=== PATIENT | female | born 1950 | race Caucasian/White ===

== ENCOUNTER → 2016-12-29 | Outpatient (REF) | payer MEDICARE, OTHER ==
[~2016-12-29] MED LIST: BRIM0.2S OU; COPA20IN SC; DITR1TAB PO
[2016-12-29 12:47] LABS: BASO % 0.5 % (0.0-1.0); EOS # 0.2 K/mm3 (0.0-0.50); EOS % 2.7 % (0.0-3.0); LARGE UNSTAINED CELL # 0.2 K/mm3 (0.0-0.4); LARGE UNSTAINED CELL % 2.4 % (0.0-4.0); LYMPH # 2.2 K/mm3 (1.5-4.5); LYMPH % 29.7 % (24.0-44.0); MEAN CORPUSCULAR HEMOGLOBIN 31.8 pg (27.0-33.0); MEAN CORPUSCULAR HGB CONC 34.1 g/dl (32.0-36.5); MEAN CORPUSCULAR VOLUME 93.4 fl (80.0-96.0); MONO # 0.5 K/mm3 (0.0-0.8); MONO % 6.8 % (0.0-5.0); NEUTROPHILS # 3.9 K/mm3 (1.8-7.7); NEUTROPHILS % 57.8 % (36.0-66.0); PLATELET COUNT, AUTOMATED 227 k/mm3 (150-450); WHITE BLOOD COUNT 6.7 K/mm3 (4.0-10.0)
[2016-12-29 13:10] LABS: VITAMIN B12 LEVEL 686 PG/ML (247-911)
[2016-12-29 13:11] LABS: ALBUMIN/GLOBULIN RATIO 1.29 (1.00-1.93); ALKALINE PHOSPHATASE 97 U/L (45-117); ALT/SGPT 71 U/L (12-78); ANION GAP 7 MEQ/L (8-16); AST/SGOT 58 U/L (15-37); BILIRUBIN,TOTAL 0.4 MG/DL (0.2-1.0); BLOOD UREA NITROGEN 11 MG/DL (7-18); CALCIUM LEVEL 10.4 MG/DL (8.8-10.2); CARBON DIOXIDE LEVEL 31 MEQ/L (21-32); CHLORIDE LEVEL 104 MEQ/L (98-107); CREATININE FOR GFR 0.69 MG/DL (0.55-1.02); GLOMERULAR FILTRATION RATE > 60.0 (>45); GLUCOSE, FASTING 90 MG/DL (80-110); POTASSIUM SERUM 4.3 MEQ/L (3.5-5.1); SODIUM LEVEL 142 MEQ/L (136-145); TOTAL PROTEIN 7.1 GM/DL (6.4-8.2)
== END ==
LOC: M LABNEURO 12:20
PROVIDERS: ATTEND Psychiatry & Neurology Neurology
DX: G35 Multiple sclerosis (principal)

== ENCOUNTER → 2017-11-30 | Outpatient (REF) | payer MEDICARE, OTHER ==
[2017-11-30 14:30] LABS: BASO # 0.1 10^3/uL (0.0-0.2); BASO % 0.8 % (0.0-1.0); EOS # 0.1 10^3/uL (0.0-0.50); HEMATOCRIT 44.8 % (36.0-47.0); HEMOGLOBIN 15.2 g/dl (12.0-16.0); IMMATURE GRANULOCYTE % 0.3 % (0-3.0); LYMPH % 30.4 % (24.0-44.0); MEAN CORPUSCULAR HEMOGLOBIN 31.7 pg (27.0-33.0); MEAN CORPUSCULAR HGB CONC 33.9 g/dl (32.0-36.5); MEAN CORPUSCULAR VOLUME 93.5 fl (80.0-96.0); MONO # 0.6 10^3/uL (0.0-0.8); MONO % 8.8 % (0.0-5.0); NEUTROPHILS # 3.8 10^3/uL (1.8-7.7); NEUTROPHILS % 57.7 % (36.0-66.0); PLATELET COUNT, AUTOMATED 272 10^3/uL (150-450); RED BLOOD COUNT 4.79 10^6/uL (4.00-5.40); RED CELL DISTRIBUTION WIDTH 12.3 % (11.5-14.5); WHITE BLOOD COUNT 6.5 10^3/uL (4.0-10.0)
[2017-11-30 14:36] LABS: ALBUMIN/GLOBULIN RATIO 1.11 (1.00-1.93); ALKALINE PHOSPHATASE 107 U/L (45-117); ALT/SGPT 40 U/L (12-78); ANION GAP 6 MEQ/L (8-16); AST/SGOT 33 U/L (7-37); BILIRUBIN,TOTAL 0.4 MG/DL (0.2-1.0); BLOOD UREA NITROGEN 10 MG/DL (7-18); CALCIUM LEVEL 9.8 MG/DL (8.8-10.2); CARBON DIOXIDE LEVEL 31 MEQ/L (21-32); CHLORIDE LEVEL 104 MEQ/L (98-107); CREATININE FOR GFR 0.65 MG/DL (0.55-1.30); GLOMERULAR FILTRATION RATE > 60.0 (>45); GLUCOSE, FASTING 81 MG/DL (70-100); POTASSIUM SERUM 4.5 MEQ/L (3.5-5.1); SODIUM LEVEL 141 MEQ/L (136-145); TOTAL PROTEIN 7.6 GM/DL (6.4-8.2)
[2017-11-30 14:37] LABS: FOLATE > 24.0 NG/ML; VITAMIN B12 LEVEL 709 PG/ML
== END ==
LOC: M LABNEURO 11:17
DX: G35 Multiple sclerosis (principal)
CPT/HCPCS: 82746

== ENCOUNTER 2019-01-27 16:42 | Outpatient (CLI) | payer MEDICARE, OTHER ==
[~2019-01-27] VITALS: Ht 162.6 cm; Wt 90.0 kg
[2019-01-27 16:45] VITALS: BP 161/81
[2019-01-27] MEDS ORDERED: methylPREDNISolone 1,000 MG, VIAL MATE ADAPTER 1 EACH in D5W 250 ML IV ONE (17:00)
[2019-01-27] MEDS ORDERED: NEUR300C PO (17:52)
[2019-01-27] MEDS ORDERED: COPA20IN SC (17:53)
[2019-01-27] MEDS ORDERED: LISI-542 PO (17:53)
[2019-01-27 18:10] VITALS: BP 141/83
[2019-01-27 18:33] VITALS: BP 134/76
== END 2019-01-27 18:30 | disposition home or self-care (01) ==
LOC: M INFU 16:42
PROVIDERS: ATTEND Psychiatry & Neurology Neurology
DX: G35 Multiple sclerosis (principal)
CPT/HCPCS: 96365; J2930

== ENCOUNTER 2019-01-28 16:00 | Outpatient (CLI) | payer MEDICARE, OTHER ==
[~2019-01-28] VITALS: Ht 162.6 cm; Wt 90.7 kg
[2019-01-28 15:05] VITALS: BP 135/64
[~2019-01-28 16:00] MED LIST changes: +LISI-542 PO; +NEUR300C PO; +methylPREDNISolone 1,000 MG, VIAL MATE ADAPTER 1 EACH in D5W 250 ML IV ONE
[2019-01-28 16:35] VITALS: BP 141/67
== END 2019-01-28 16:35 | disposition home or self-care (01) ==
LOC: M INFU 16:00
PROVIDERS: ATTEND Psychiatry & Neurology Neurology
DX: G35 Multiple sclerosis (principal)
CPT/HCPCS: 96365; J2930

== ENCOUNTER 2019-01-29 12:49 | Outpatient (CLI) | payer MEDICARE, OTHER ==
[~2019-01-29 12:49] MED LIST changes: -methylPREDNISolone 1,000 MG, VIAL MATE ADAPTER 1 EACH in D5W 250 ML IV ONE
[2019-01-29 13:10] VITALS: BP 137/66
[2019-01-29] MEDS ORDERED: methylPREDNISolone 1,000 MG, VIAL MATE ADAPTER 1 EACH in D5W 250 ML IV ONE (14:00)
[2019-01-29 15:00] VITALS: BP 133/62
== END 2019-01-29 15:15 | disposition home or self-care (01) ==
LOC: M OPCLIPED 12:49 → M PED 13:00 → M OPCLIPED 15:15
PROVIDERS: ATTEND Psychiatry & Neurology Neurology
DX: G35 Multiple sclerosis (principal)
CPT/HCPCS: 96365; J2930

== ENCOUNTER 2019-01-30 08:57 | Outpatient (CLI) | payer MEDICARE, OTHER ==
[~2019-01-30] VITALS: Ht 162.6 cm; Wt 86.2 kg
[2019-01-30 09:17] VITALS: BP 133/72
[2019-01-30] MEDS ORDERED: methylPREDNISolone 1,000 MG, VIAL MATE ADAPTER 1 EACH in D5W 250 ML IV ONE (09:45)
[2019-01-30 11:00] VITALS: BP 144/71
== END 2019-01-30 11:20 | disposition home or self-care (01) ==
LOC: M OPCLIPED 08:57 → M PED 09:01 → M OPCLIPED 11:20
PROVIDERS: ATTEND Psychiatry & Neurology Neurology
DX: G35 Multiple sclerosis (principal)
CPT/HCPCS: 96365; J2930

== ENCOUNTER 2019-01-31 13:59 | Outpatient (CLI) | payer MEDICARE, OTHER ==
[~2019-01-31] VITALS: Ht 162.6 cm; Wt 90.0 kg
[2019-01-31 14:00] VITALS: BP 141/75
[2019-01-31] MEDS ORDERED: methylPREDNISolone 1,000 MG, VIAL MATE ADAPTER 1 EACH in D5W 250 ML IV ONE (15:00)
[2019-01-31 15:15] VITALS: BP 164/88
== END 2019-01-31 15:15 | disposition home or self-care (01) ==
LOC: M INFU 13:59
PROVIDERS: ATTEND Psychiatry & Neurology Neurology
DX: G35 Multiple sclerosis (principal)
CPT/HCPCS: 96365; J2930

== ENCOUNTER → 2019-08-23 | Outpatient (REF) | payer MEDICARE, OTHER ==
[2019-08-23 14:46] LABS: BASO % 0.4 % (0.0-1.0); EOS # 0.2 10^3/uL (0.0-0.5); EOS % 2.7 % (0.0-3.0); HEMATOCRIT 46.6 % (36.0-47.0); HEMOGLOBIN 14.7 g/dl (12.0-15.5); LYMPH # 1.7 10^3/uL (1.5-5.0); LYMPH % 24.7 % (24.0-44.0); MEAN CORPUSCULAR HEMOGLOBIN 30.7 pg (27.0-33.0); MEAN CORPUSCULAR HGB CONC 31.5 g/dl (32.0-36.5); MEAN CORPUSCULAR VOLUME 97.3 fl (80.0-96.0); MONO # 0.6 10^3/uL (0.0-0.8); MONO % 8.9 % (0.0-5.0); NEUTROPHILS # 4.4 10^3/uL (1.5-8.5); NEUTROPHILS % 63.2 % (36.0-66.0); PLATELET COUNT, AUTOMATED 268 10^3/uL (150-450); RED BLOOD COUNT 4.79 10^6/uL (4.00-5.40)
[2019-08-23 14:48] LABS: ALBUMIN 3.8 GM/DL (3.2-5.2); ALT/SGPT 37 U/L (12-78); BILIRUBIN,TOTAL 0.4 MG/DL (0.2-1.0); BLOOD UREA NITROGEN 10 MG/DL (7-18); CALCIUM LEVEL 9.9 MG/DL (8.8-10.2); CARBON DIOXIDE LEVEL 31 MEQ/L (21-32); CHLORIDE LEVEL 104 MEQ/L (98-107); GLOMERULAR FILTRATION RATE > 60.0 (>45); GLUCOSE, FASTING 99 MG/DL (70-100); POTASSIUM SERUM 4.3 MEQ/L (3.5-5.1); SODIUM LEVEL 141 MEQ/L (136-145); TOTAL PROTEIN 7.5 GM/DL (6.4-8.2)
[2019-08-23 15:09] LABS: FOLATE > 24.0 NG/ML; VITAMIN B12 LEVEL 768 PG/ML
== END ==
LOC: M LABNEURO 10:54
PROVIDERS: ATTEND Psychiatry & Neurology Neurology
DX: G35 Multiple sclerosis (principal)

== ENCOUNTER → 2021-07-01 | Outpatient (CLI) | payer MEDICARE, OTHER ==
[~2021-07-01] VITALS: Ht 162.6 cm; Wt 90.0 kg
[~2021-07-01] MED LIST changes: -LISI-542 PO; +LISI-898 PO; +methylPREDNISolone 1,000 MG, VIAL MATE ADAPTER 1 EACH in NS 250 ML IV ONE
[2021-07-01 13:45] VITALS: BP 175/84
[2021-07-01 15:10] VITALS: BP 172/92
== END ==
LOC: M INFU 13:37
PROVIDERS: ATTEND Psychiatry & Neurology Neurology
DX: G35 Multiple sclerosis (principal); Z88.2 Allergy status to sulfonamides
CPT/HCPCS: 96365; J2930

== ENCOUNTER 2021-07-02 13:21 | Outpatient (CLI) | payer MEDICARE, OTHER ==
[~2021-07-02] VITALS: Ht 162.6 cm; Wt 90.0 kg
[~2021-07-02 13:21] MED LIST changes: -methylPREDNISolone 1,000 MG, VIAL MATE ADAPTER 1 EACH in NS 250 ML IV ONE
[2021-07-02 13:30] VITALS: BP 160/72
[2021-07-02] MEDS ORDERED: methylPREDNISolone 1,000 MG, VIAL MATE ADAPTER 1 EACH in NS 250 ML IV ONE (14:00)
[2021-07-02 14:43] VITALS: BP 163/74
== END 2021-07-02 14:45 | disposition home or self-care (01) ==
LOC: M INFU 13:21
PROVIDERS: ATTEND Psychiatry & Neurology Neurology
DX: G35 Multiple sclerosis (principal); Z88.2 Allergy status to sulfonamides
CPT/HCPCS: 96365; J2930

== ENCOUNTER 2021-07-03 14:07 | Outpatient (CLI) | payer MEDICARE, OTHER ==
[~2021-07-03] VITALS: Ht 162.6 cm; Wt 90.0 kg
[2021-07-03] MEDS ORDERED: methylPREDNISolone 1,000 MG, VIAL MATE ADAPTER 1 EACH in NS 250 ML IV ONE (14:30)
[2021-07-03 14:38] VITALS: BP 144/70
[2021-07-03 15:43] VITALS: BP 143/78
== END 2021-07-03 15:45 | disposition home or self-care (01) ==
LOC: M INFU 14:07
PROVIDERS: ATTEND Psychiatry & Neurology Neurology
DX: G35 Multiple sclerosis (principal); Z88.2 Allergy status to sulfonamides
CPT/HCPCS: 96365; J2930

== ENCOUNTER 2021-07-04 13:58 | Outpatient (CLI) | payer MEDICARE, OTHER ==
[2021-07-04] MEDS ORDERED: methylPREDNISolone 1,000 MG, VIAL MATE ADAPTER 1 EACH in NS 250 ML IV ONE (14:30)
[2021-07-04 15:50] VITALS: BP 165/81
== END 2021-07-04 15:50 | disposition home or self-care (01) ==
LOC: M INFU 13:58
PROVIDERS: ATTEND Psychiatry & Neurology Neurology
DX: G35 Multiple sclerosis (principal); Z88.2 Allergy status to sulfonamides
CPT/HCPCS: 96365; J2930

== ENCOUNTER 2021-07-05 14:12 | Outpatient (CLI) | payer MEDICARE, OTHER ==
[~2021-07-05] VITALS: Ht 162.6 cm; Wt 90.0 kg
[2021-07-05 14:20] VITALS: BP 158/81
[2021-07-05] MEDS ORDERED: methylPREDNISolone 1,000 MG, VIAL MATE ADAPTER 1 EACH in NS 250 ML IV ONE (14:30)
[2021-07-05 15:45] VITALS: BP 160/80
== END 2021-07-05 15:45 | disposition home or self-care (01) ==
LOC: M INFU 14:12
PROVIDERS: ATTEND Psychiatry & Neurology Neurology
DX: G35 Multiple sclerosis (principal); Z88.2 Allergy status to sulfonamides
CPT/HCPCS: 96365; J2930